=== PATIENT | female | born 1990 | race Caucasian/White ===

== ENCOUNTER 2017-10-10 19:43 | Emergency (ER) | payer OTHER ==
[2017-10-10] MEDS ORDERED: LIDOCAINE 1% MPF 5 ML VIAL ONE (20:52)
[2017-10-10] MEDS ORDERED: HYDROCODONE/APAP 7.5/325 MG TAB ONE (21:14)
[2017-10-10] MEDS ORDERED: CLINDAMYCIN HCL 150 MG CAP ONE (21:14)
--- NOTE | 2017-10-10 21:23 | EDPHYS ---
Physician Documentation [facility] Name: Vera Cortes Age: 27 yrs Sex: Female : 1990 Arrival Date: 10/10/2017 Time: 19:44 Bed 7 Private MD: ED Physician Mario Bonilla HPI: 10/10 21:18 This 27 yrs old Female presents to ER via Wheelchair with complaints of Cyst. snw 21:18 Onset: The symptoms/episode began/occurred suddenly, 1 week(s) ago, and became worse snw and became persistent. Associated signs and symptoms: Pertinent positives: pain. The patient has not experienced similar symptoms in the past. The patient has been recently seen by a physician: + [facility] yest. Started on antibiotics. Amoxil and Clindamycin bottles at bedside. 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 - Social history:: Smoking status: Patient/guardian denies using tobacco. - Ebola Screening: : No symptoms or risks identified at this time. ROS: 21:18 Constitutional: Negative for fever, chills, and weight loss, Eyes: Negative for injury, snw pain, redness, and discharge, ENT: Negative for injury, pain, and discharge, Neck: Negative for injury, pain, and swelling, Cardiovascular: Negative for chest pain, palpitations, and edema, Respiratory: Negative for shortness of breath, cough, wheezing, and pleuritic chest pain, Abdomen/GI: Negative for abdominal pain, nausea, vomiting, diarrhea, and constipation, Back: Negative for injury and pain, : Negative for injury, bleeding, discharge, and swelling, MS/Extremity: Negative for injury and deformity, Neuro: Negative for headache, weakness, numbness, tingling, and seizure. 21:18 Skin: Positive for pilonidal cyst. Exam: 21:20 Constitutional: This is a well developed, well nourished patient who is awake, alert, snw and in no acute distress. Head/Face: Normocephalic, atraumatic. Eyes: Pupils equal round and reactive to light, extra-ocular motions intact. Lids and lashes normal. Conjunctiva and sclera are non-icteric and not injected. Cornea within normal limits. Periorbital areas with no swelling, redness, or edema. ENT: Nares patent. No nasal discharge, no septal abnormalities noted. Tympanic membranes are normal and external auditory canals are clear. Oropharynx with no redness, swelling, or masses, exudates, or evidence of obstruction, uvula midline. Mucous membranes moist. Neck: Trachea midline, no thyromegaly or masses palpated, and no cervical lymphadenopathy. Supple, full range of motion without nuchal rigidity, or vertebral point tenderness. No Meningismus. Chest/axilla: Normal chest wall appearance and motion. Nontender with no deformity. No lesions are appreciated. Cardiovascular: Regular rate and rhythm with a normal S1 and S2. No gallops, murmurs, or rubs. Normal PMI, no JVD. No pulse deficits. Respiratory: Lungs have equal breath sounds bilaterally, clear to auscultation and percussion. No rales, rhonchi or wheezes noted. No increased work of breathing, no retractions or nasal flaring. Abdomen/GI: Soft, non-tender, with normal bowel sounds. No distension or tympany. No guarding or rebound. No evidence of tenderness throughout. Skin: Warm, dry with normal turgor. Normal color with no rashes, no lesions, and no evidence of cellulitis. MS/ Extremity: Pulses equal, no cyanosis. Neurovascular intact. Full, normal range of motion. Neuro: Awake and alert, GCS 15, oriented to person, place, time, and situation. Cranial nerves II-XII grossly intact. Motor strength 5/5 in all extremities. Sensory grossly intact. Cerebellar exam normal. Normal gait. Psych: Awake, alert, with orientation to person, place and time. Behavior, mood, and affect are within normal limits. 21:20 Back: pain, that is moderate, that is severe, of the area from cleft of buttock up to level of iliac crest, fluctuant and full. Vital Signs: 20:16 BP 128 / 100; Pulse 100; Resp 18; Temp 98.7(O); Pulse Ox 99% on R/A; Weight 92.99 kg; tl2 Height 5 ft. 6 in. (167.64 cm); Pain 10/10; 21:08 BP 114 / 71; Pulse 98; Resp 20; Pulse Ox 100% ; tl2 20:16 Body Mass Index 33.09 (92.99 kg, 167.64 cm) tl2 Procedures: 21:17 I \T\ D: Incision and drainage was performed for an abscess of the pilonidal cyst Prepped snw with Betadine, Anesthetized with 5 ml's 1% Lidocaine. Incised with 14g angiocath. Drained large amount serosanguinous fluid. Dressing: sterile 4x4 gauze, the patient tolerated the procedure well, 80ml. MDM: 20:10 Patient medically screened. snw 21:43 Data reviewed: vital signs, nurses notes. Data interpreted: Pulse oximetry: on room air snw is 100 %. Interpretation: normal. Counseling: I had a detailed discussion with the patient and/or guardian regarding: the historical points, exam findings, and any diagnostic results supporting the discharge/admit diagnosis, the need for outpatient follow up, to return to the emergency department if symptoms worsen or persist or if there are any questions or concerns that arise at home. Special discussion: Based on the history and exam findings, there is no indication for further emergent testing or inpatient evaluation. I discussed with the patient/guardian the need to see the general surgeon for further evaluation of the symptoms. I discussed with the patient/guardian the need to see the primary care provider for further evaluation of the symptoms. 10/10 21:03 Order name: Wound Culture tl2 10/10 21:03 Order name: I\T\D Setup; Complete Time: 21:03 tl2 Administered Medications: 21:09 Drug: Lidocaine (1 %) 5 mg Volume: 5 ml; Route: Infiltration; tl2 21:09 Drug: Lidocaine (1 %) 5 mg Volume: 5 ml; Route: Infiltration; tl2 21:15 Drug: Clindamycin 300 mg Route: PO; tl2 21:36 Follow up: Response: No adverse reaction tl2 21:15 Drug: Vinson (7.5 mg-325 mg) 1 tabs Route: PO; tl2 21:37 Follow up: Response: No adverse reaction; Pain is decreased tl2 Disposition: 10/11 08:31 Co-signature as Attending Physician, Mario Bonilla MD I agree with the assessment and med plan of care. Disposition: 10/10/17 21:22 Discharged to Home. Impression: Pilonidal cyst with abscess. - Condition is Stable. - Discharge Instructions: Abscess, Incision and Drainage, Pilonidal Cyst, Sitz Bath. - Prescriptions for Diclofenac Sodium 75 mg Oral Tablet Sustained Release - take 1 tablet by ORAL route 2 times per day; 30 tablet. - Medication Reconciliation Form, Thank You Letter, Antibiotic Education, Prescription Opioid Use, Work release form form. - Follow up: Jalil Beth MD; When: 2 - 3 days; Reason: Recheck today's complaints, Continuance of care. Follow up: Emergency Department; When: As needed; Reason: Worsening of condition. Signatures: Dispatcher [employer] EDPA Mario Bonilla MD MD cha Therrien, Shelly, TURBO GENERATOR OILER-C TURBO GENERATOR OILER-Csnw Claire Schwarz RN RN tl2 Corrections: (The following items were deleted from the chart) 10/10 21:37 21:22 10/10/2017 21:22 Discharged to Home. Impression: Pilonidal cyst with abscess. tl2 Condition is Stable. Forms are Medication Reconciliation Form, Thank You Letter, Antibiotic Education, Prescription Opioid Use. Follow up: Jalil Beth; When: 2 - 3 days; Reason: Recheck today's complaints, Continuance of care. Follow up: Emergency Department; When: As needed; Reason: Worsening of condition. snw
--- NOTE | 2017-10-10 21:23 | ER ---
Nurse's Notes [facility] Name: Vera Cortes Age: 27 yrs Sex: Female : 1990 Arrival Date: 10/10/2017 Time: 19:44 Bed 7 Private MD: Diagnosis: Pilonidal cyst with abscess Presentation: 10/10 20:09 Presenting complaint: Patient states: abscess on tailbone. Was seen at [facility] tl2 yesterday and was given oral antibiotics. Did not have an I\T\D. Pt states it has been draining on its own. Pt is unable to bear weight on it. Reports fever since Sunday. Transition of care: patient was not received from another setting of care. Onset of symptoms was September 30, 2017. Risk Assessment: Do you want to hurt yourself or someone else? Patient reports no desire to harm self or others. Initial Sepsis Screen: Does the patient meet any 2 criteria? No. Patient's initial sepsis screen is negative. Does the patient have a suspected source of infection? No. Patient's initial sepsis screen is negative. Care prior to arrival: None. 20:09 Method Of Arrival: Wheelchair tl2 20:09 Acuity: VIDA 3 tl2 Triage Assessment: 20:16 General: Appears in no apparent distress. uncomfortable, Behavior is calm, cooperative, tl2 appropriate for age. General: Reports fever for 2-3 days. Pain: Complains of pain in gluteal cleft Pain does not radiate. Pain currently is 10 out of 10 on a pain scale. Neuro: Level of Consciousness is awake, alert, obeys commands, Oriented to person, place, time, situation. Cardiovascular: Denies chest pain. Respiratory: Airway is patent Respiratory effort is even, unlabored, Respiratory pattern is regular, symmetrical. GI: No signs and/or symptoms were reported involving the gastrointestinal system. : No signs and/or symptoms were reported regarding the genitourinary system. Derm: Skin is pink, warm \T\ dry. Abscess located on gluteal cleft is dime sized, has clear drainage, has foul odor. 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 - Social history:: Smoking status: Patient/guardian denies using tobacco. - Ebola Screening: : No symptoms or risks identified at this time. Screenin:19 Abuse screen: Denies threats or abuse. Nutritional screening: No deficits noted. tl2 Tuberculosis screening: No symptoms or risk factors identified. Fall Risk None identified. Assessment: 20:19 General: see triage assessment. tl2 21:07 Reassessment: Patient appears in no apparent distress at this time. Patient and/or tl2 family updated on plan of care and expected duration. Pain level reassessed. Patient is alert, oriented x 3, equal unlabored respirations, skin warm/dry/pink. Patient states feeling better. 21:34 Reassessment: Patient appears in no apparent distress at this time. Patient and/or tl2 family updated on plan of care and expected duration. Pain level reassessed. Patient is alert, oriented x 3, equal unlabored respirations, skin warm/dry/pink. Pt verbalized understanding of discharge instructions, need for follow up and prescription usage Patient states feeling better. Vital Signs: 20:16 BP 128 / 100; Pulse 100; Resp 18; Temp 98.7(O); Pulse Ox 99% on R/A; Weight 92.99 kg; tl2 Height 5 ft. 6 in. (167.64 cm); Pain 10/10; 21:08 BP 114 / 71; Pulse 98; Resp 20; Pulse Ox 100% ; tl2 20:16 Body Mass Index 33.09 (92.99 kg, 167.64 cm) tl2 ED Course: 19:44 Patient arrived in ED. am2 20:08 Claire Schwarz RN is Primary Nurse. tl2 20:10 Felisha Jules FNP-C is PHCP. snw 20:10 Mario Bonilla MD is Attending Physician. snw 20:15 Triage completed. tl2 20:16 Arm band placed on right wrist. tl2 20:19 Patient has correct armband on for positive identification. Placed in gown. Bed in low tl2 position. Call light in reach. Side rails up X 1. Adult w/ patient. 21:07 Assist provider with I \T\ D: of an abscess on pilonidal cyst Set up I\T\D tray. Performed tl 2 by Felisha BENNETT Culture sent to lab. Dressing with 4X4s, Patient tolerated well. 80 mL of drainage removed from abscess. 21:22 Jalil Beth MD is Referral Physician. snw 21:34 Patient did not have IV access during this emergency room visit. tl2 Administered Medications: 21:09 Drug: Lidocaine (1 %) 5 mg Volume: 5 ml; Route: Infiltration; tl2 21:09 Drug: Lidocaine (1 %) 5 mg Volume: 5 ml; Route: Infiltration; tl2 21:15 Drug: Clindamycin 300 mg Route: PO; tl2 21:36 Follow up: Response: No adverse reaction tl2 21:15 Drug: Colona (7.5 mg-325 mg) 1 tabs Route: PO; tl2 21:37 Follow up: Response: No adverse reaction; Pain is decreased tl2 Outcome: 21:22 Discharge ordered by . snw 21:34 Discharged to home ambulatory, with friend. tl2 21:34 Condition: stable 21:34 Discharge instructions given to patient, Instructed on discharge instructions, follow up and referral plans. medication usage, Demonstrated understanding of instructions, follow-up care, medications, Prescriptions given X 1. 21:37 Patient left the ED. tl2 Signatures: Felisha Jules, SABRINA FAN MAIL CLERK-Csnw Claire Schwarz RN RN tl2 Flori Fernández am2
== END 2017-10-10 21:37 | disposition home or self-care (01) ==
LOC: ER 19:43
PROC: 0H98XZZ Drainage of Buttock Skin, External Approach (ICD-10-PCS; principal; 2017-10-10)
DX: L05.01 Pilonidal cyst with abscess (principal)
CPT/HCPCS: 87070; 87205; 99284